=== PATIENT | female | born 2005 | race Caucasian/White ===

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

== ENCOUNTER 2023-02-17 13:51 | Emergency (ER) | payer OTHER | END 2023-02-17 14:57 | disposition left against medical advice (07) | LOC: ED 13:51 | DX: K62.89 Other specified diseases of anus and rectum (principal); Z53.21 Procedure and treatment not carried out due to patient leaving prior to being seen by health care provider ==

== ENCOUNTER 2023-04-16 15:01 | Emergency (ER) | payer OTHER ==
[~2023-04-16] VITALS: Wt 59.0 kg
[2023-04-16] MEDS ORDERED: SEPTDS PO (22:06)
[2023-04-16] MEDS ORDERED: REGLAN10 M1 PO (22:06)
== END 2023-04-16 16:41 | disposition left against medical advice (07) ==
LOC: ED 15:01
DX: N39.0 Urinary tract infection, site not specified (principal); R11.10 Vomiting, unspecified; Z53.21 Procedure and treatment not carried out due to patient leaving prior to being seen by health care provider

== ENCOUNTER 2023-04-16 20:26 | Emergency (ER) | payer OTHER ==
[~2023-04-16] VITALS: Ht 170.1 cm; Wt 59.0 kg
[2023-04-16 20:59] LABS: BILIRUBIN Negative (Negative); BLOOD 3+ (Negative); CLARITY Turbid (Clear); COLOR Yellow (Yellow); GLUCOSE Negative (Negative); KETONE Trace (Negative); LEUKO ESTERASE 3+ (Negative); NITRITE Negative (Negative); PH 5.5 (4.5-8.0); SPECIFIC GRAVITY 1.015 (1.001-1.030)
[2023-04-16 21:09] LABS: BACTERIA 2+; WBC TNTC wbc/hpf (0-5)
[2023-04-16 21:10] LABS: BASO % 0.3 % (0.0-1.0); HEMATOCRIT 37.3 % (37.0-47.0); LYMPH # 1.4 10*3/uL (1.3-4.4); MEAN CELL VOLUME 89.9 fl (81.0-99.0); MEAN CORPUSCULAR HGB 31.1 pg (27.0-31.0); MEAN CORPUSCULAR HGB CONC 34.6 g/dl (33.0-37.0); MEAN PLATELET VOLUME 10.2 fl (9.6-12.3); MONO # 1.4 10*3/uL (0.1-1.0); MONO % 11.7 % (3.0-9.0); NEUT % 75.7 % (47.0-73.0); PLATELET COUNT AUTOMATED 255 10*3/uL (130-400); RED BLOOD COUNT 4.15 10*6/uL (4.10-5.10); RED CELL DISTRI WIDTH 11.8 % (0-14.5); WHITE BLOOD COUNT 11.9 10*3/uL (4.8-10.8)
[2023-04-16 21:29] LABS: ALKALINE PHOSPHATASE 60 U/L (46-116); BUN 7 mg/dl (9-23); CHLORIDE 106 mmol/L (98-107); POTASSIUM 3.5 mmol/L (3.4-5.1); SGPT/ALT 8 U/L (10-49); TOTAL PROTEIN 7.4 gm/dL (6.0-8.0)
[2023-04-16] MEDS ORDERED: REGLAN10 M1 PO (22:06)
[2023-04-16] MEDS ORDERED: SEPTDS PO (22:06)
== END 2023-04-16 22:38 | disposition home or self-care (01) ==
LOC: ED 20:26
PROVIDERS: Emergency Medicine
DX: N39.0 Urinary tract infection, site not specified (principal); R11.2 Nausea with vomiting, unspecified; Z88.8 Allergy status to other drugs, medicaments and biological substances; Z90.89 Acquired absence of other organs; Z98.890 Other specified postprocedural states

== ENCOUNTER 2023-06-13 20:19 | Emergency (ER) | payer SELFPAY ==
[~2023-06-13] VITALS: Ht 167.6 cm; Wt 59.0 kg
[~2023-06-13 20:19] MED LIST changes: +REGLAN10 M1 PO; +SEPTDS PO
== END 2023-06-13 23:22 | disposition home or self-care (01) ==
LOC: ED 20:19
DX: S93.601A Unspecified sprain of right foot, initial encounter (principal); S90.31XA Contusion of right foot, initial encounter; Z88.8 Allergy status to other drugs, medicaments and biological substances; Z90.89 Acquired absence of other organs; Z98.890 Other specified postprocedural states; Y83.8 Other surgical procedures as the cause of abnormal reaction of the patient, or of later complication, without mention of misadventure at the time of the procedure; Y93.89 Activity, other specified; Y92.89 Other specified places as the place of occurrence of the external cause; Y99.8 Other external cause status

== ENCOUNTER 2024-02-11 05:53 | Emergency (ER) | payer SELFPAY ==
[~2024-02-11] VITALS: Ht 170.1 cm; Wt 54.4 kg
[2024-02-11 06:18] LABS: BASO # 0.1 10*3/uL (0.0-0.1); BASO % 0.6 % (0.0-1.0); EOS # 0.3 10*3/uL (0.0-0.4); LYMPH % 28.2 % (27.0-41.0); MEAN CELL VOLUME 92.1 fl (81.0-99.0); MEAN CORPUSCULAR HGB 30.6 pg (27.0-31.0); MEAN CORPUSCULAR HGB CONC 33.2 g/dl (33.0-37.0); MEAN PLATELET VOLUME 9.9 fl (9.6-12.3); MONO # 0.7 10*3/uL (0.1-1.0); MONO % 6.8 % (3.0-9.0); NEUT # 6.6 10*3/uL (2.3-7.9); NEUT % 60.8 % (47.0-73.0); PLATELET COUNT AUTOMATED 363 10*3/uL (130-400); RED BLOOD COUNT 4.45 10*6/uL (4.10-5.10); RED CELL DISTRI WIDTH 12.5 % (0-14.5); WHITE BLOOD COUNT 10.8 10*3/uL (4.8-10.8)
[2024-02-11 06:39] LABS: ALKALINE PHOSPHATASE 60 U/L (46-116); BUN 9 mg/dl (9-23); CHLORIDE 107 mmol/L (98-107); POTASSIUM 3.9 mmol/L (3.4-5.1); SGPT/ALT 17 U/L (5-49); TOTAL PROTEIN 7.3 gm/dL (6.0-8.0)
== END 2024-02-11 07:33 | disposition home or self-care (01) ==
LOC: ED 05:53
PROVIDERS: Internal Medicine
DX: N93.9 Abnormal uterine and vaginal bleeding, unspecified (principal); Z88.8 Allergy status to other drugs, medicaments and biological substances; Z98.890 Other specified postprocedural states; Z90.89 Acquired absence of other organs

== ENCOUNTER 2024-03-01 12:06 | Emergency (ER) | payer SELFPAY ==
[~2024-03-01] VITALS: Wt 56.7 kg
[2024-03-01 13:06] LABS: BILIRUBIN Negative (Negative); BLOOD 2+ (Negative); CLARITY Cloudy (Clear); COLOR Yellow (Yellow); GLUCOSE Negative (Negative); KETONE 1+ (Negative); LEUKO ESTERASE 3+ (Negative); NITRITE Negative (Negative); PH 5.5 (4.5-8.0); SPECIFIC GRAVITY 1.025 (1.001-1.030)
[2024-03-01 13:16] LABS: BACTERIA 2+; WBC TNTC wbc/hpf (0-5)
[2024-03-01 13:17] LABS: EPITHELIAL CELLS 16-20
[2024-03-01] MEDS ORDERED: CIPRO500 MG PO (13:27)
[2024-03-01] MEDS ORDERED: AZITHROMYCIN 250 MG TAB PO ONE (13:30)
[2024-03-01] MEDS ORDERED: Water, Sterile 10 ML VIAL ONE (13:52)
== END 2024-03-01 13:59 | disposition home or self-care (01) ==
LOC: ED 12:06
PROVIDERS: Nurse Practitioner Family
DX: N39.0 Urinary tract infection, site not specified (principal); Z88.8 Allergy status to other drugs, medicaments and biological substances; Z90.89 Acquired absence of other organs; Z98.890 Other specified postprocedural states

== ENCOUNTER 2024-07-10 17:41 | Emergency (ER) | payer OTHER ==
[~2024-07-10] VITALS: Wt 59.0 kg
[~2024-07-10 17:41] MED LIST changes: +CIPRO500 MG PO
[2024-07-10 18:53] LABS: URINE AMPHETAMINES Positive (1000ng/ml); URINE BARBITURATES Negative (200ng/ml); URINE BENZODIAZEPINES Negative (200ng/ml); URINE CANNABINOIDS (THC) Negative (50ng/ml); URINE COCAINE Negative (300ng/ml); URINE METHADONE Negative (300ng/ml); URINE OPIATES Negative (300ng/ml); URINE PHENCYCLIDINE Negative (25ng/ml)
== END 2024-07-10 19:19 | disposition home or self-care (01) ==
LOC: ED 17:41
PROVIDERS: Physician Assistant Medical
DX: R82.5 Elevated urine levels of drugs, medicaments and biological substances (principal); R42 Dizziness and giddiness; Z88.8 Allergy status to other drugs, medicaments and biological substances; Z90.89 Acquired absence of other organs; Z98.890 Other specified postprocedural states; Z79.899 Other long term (current) drug therapy

== ENCOUNTER 2024-10-07 13:06 | Emergency (ER) | payer OTHER ==
[~2024-10-07] VITALS: Ht 170.1 cm; Wt 59.0 kg
[2024-10-07] MEDS ORDERED: Bacitracin Zinc 14 GM TUBE T ONE (13:30)
[2024-10-07] MEDS ORDERED: OFLOXACIN 10 ML10 M2 OT (15:37)
[2024-10-07] MEDS ORDERED: HYDROCODONE-AC1 EAC1 PO (15:37)
[2024-10-07] MEDS ORDERED: SEPTDS PO (15:37)
[2024-10-07] MEDS ORDERED: Tdap Vaccine 0.5 ML SYR (Adult Vaccine) IM ONE (15:40)
[2024-10-07] MEDS ORDERED: OFLOXACIN 0.3% 5 ML BOTTLE OT ONE (15:40)
[2024-10-07] MEDS ORDERED: Acetaminophen/Hydrocodone 5 MG/325 MG TABLET PO ONE (15:40)
[2024-10-07] MEDS ORDERED: Sulfamethoxazole/Trimethopri 1 TAB TAB PO ONE (15:40)
== END 2024-10-07 15:59 | disposition home or self-care (01) ==
LOC: ED 13:06
DX: S22.32XA Fracture of one rib, left side, initial encounter for closed fracture (principal); S01.112A Laceration without foreign body of left eyelid and periocular area, initial encounter; S30.0XXA Contusion of lower back and pelvis, initial encounter; H72.91 Unspecified perforation of tympanic membrane, right ear; M54.2 Cervicalgia; Z88.8 Allergy status to other drugs, medicaments and biological substances; Z90.89 Acquired absence of other organs; Z98.890 Other specified postprocedural states; Y08.89XA Assault by other specified means, initial encounter; Y93.89 Activity, other specified; Y92.89 Other specified places as the place of occurrence of the external cause; Y99.8 Other external cause status

== ENCOUNTER 2024-11-13 13:47 | Emergency (ER) | payer OTHER ==
[~2024-11-13] VITALS: Ht 170.1 cm; Wt 56.7 kg
[~2024-11-13 13:47] MED LIST changes: +HYDROCODONE-AC1 EAC1 PO; +OFLOXACIN 10 ML10 M2 OT
[2024-11-13] MEDS ORDERED: Ondansetron Hydrochloride 4 MG/2 ML VIAL IV ONE (14:45)
[2024-11-13] MEDS ORDERED: SODIUM CHLORIDE 0.9% 1,000 ML IV ONE (14:45)
[2024-11-13 15:14] LABS: HEMATOCRIT 38.2 % (37.0-47.0); MEAN CELL VOLUME 90.5 fl (81.0-99.0); MEAN CORPUSCULAR HGB 30.8 pg (27.0-31.0); MEAN PLATELET VOLUME 10.6 fl (9.6-12.3); PLATELET COUNT AUTOMATED 236 10*3/uL (130-400); RED BLOOD COUNT 4.22 10*6/uL (4.10-5.10); RED CELL DISTRI WIDTH 12.5 % (0-14.5); WHITE BLOOD COUNT 19.6 10*3/uL (4.8-10.8)
[2024-11-13 15:16] LABS: MANUAL DIFF REFLEX YES
[2024-11-13 15:33] LABS: BUN 6 mg/dl (9-23); CHLORIDE 103 mmol/L (98-107); POTASSIUM 3.5 mmol/L (3.4-5.1)
[2024-11-13 15:54] LABS: BASOPHILS 1 % (0-1); PLATELET SUFFICIENCY NORMAL (NORMAL); TOTAL CELLS COUNTED 100 #CELLS
[2024-11-13 16:11] LABS: BILIRUBIN Negative (Negative); BLOOD Trace-Lysed (Negative); CLARITY Clear (Clear); COLOR Yellow (Yellow); GLUCOSE Negative (Negative); KETONE 1+ (Negative); LEUKO ESTERASE Negative (Negative); NITRITE Negative (Negative)
[2024-11-13 16:21] LABS: BACTERIA TRACE; MUCOUS 1+
[2024-11-13] MEDS ORDERED: Metoclopramide Hydrochloride 10 MG/2 ML VIAL IV ONE (16:25)
[2024-11-13] MEDS ORDERED: diphenhydrAMINE hydrochloride 50 MG/ML VIAL IV ONE (16:25)
[2024-11-13] MEDS ORDERED: Ondansetron4 MG PO (17:02)
[2024-11-13] MEDS ORDERED: AMOX-CLAV 875-1 EACH PO (17:02)
[2024-11-13] MEDS ORDERED: Amoxicillin/Clavulanate Pota 875 MG TAB PO ONE (17:05)
== END 2024-11-13 17:24 | disposition home or self-care (01) ==
LOC: ED 13:47
PROVIDERS: Nurse Practitioner Family
DX: J02.9 Acute pharyngitis, unspecified (principal); Z20.822 Contact with and (suspected) exposure to COVID-19; Z88.8 Allergy status to other drugs, medicaments and biological substances; Z90.89 Acquired absence of other organs; Z98.890 Other specified postprocedural states

== ENCOUNTER 2025-02-22 10:58 | Emergency (ER) | payer OTHER ==
[~2025-02-22 10:58] MED LIST changes: +AMOX-CLAV 875-1 EACH PO; +Ondansetron4 MG PO
== END 2025-02-22 12:25 | disposition home or self-care (01) ==
LOC: ED 10:58
DX: S93.692A Other sprain of left foot, initial encounter (principal); Z88.1 Allergy status to other antibiotic agents; Z79.2 Long term (current) use of antibiotics; Z98.890 Other specified postprocedural states; V03.99XA Pedestrian with other conveyance injured in collision with car, pick-up truck or van, unspecified whether traffic or nontraffic accident, initial encounter; Y93.89 Activity, other specified; Y92.488 Other paved roadways as the place of occurrence of the external cause; Y99.8 Other external cause status